=== PATIENT | female | born 1975 | race Caucasian/White ===

== ENCOUNTER 2020-07-10 14:37 | Emergency (ER) | payer OTHER ==
[~2020-07-10] VITALS: Ht 167.6 cm; Wt 63.5 kg
[2020-07-10] MEDS ORDERED: ONDANSETRON ODT4 MG SL (21:12)
[2020-07-10] MEDS ORDERED: KETO10TA2 PO (21:12)
[2020-07-10] MEDS ORDERED: CEFADROXIL500 MG PO (21:12)
[2020-07-10] MEDS ORDERED: TAMS0.4C PO (21:12)
== END 2020-07-10 21:43 ==
LOC: ER 14:37
DX: N20.0 Calculus of kidney (principal); N83.292 Other ovarian cyst, left side